=== PATIENT | male | born 1960 | race Caucasian/White ===

== ENCOUNTER 2017-05-10 12:25 | Emergency (ER) | payer OTHER ==
[~2017-05-10] VITALS: Ht 177.8 cm; Wt 87.5 kg
== END 2017-05-10 15:04 | disposition home or self-care (01) ==
LOC: ER 12:25
DX: R68.84 Jaw pain (principal)

== ENCOUNTER 2024-09-18 00:20 | Emergency (ER) | payer OTHER ==
[~2024-09-18] VITALS: Ht 177.8 cm; Wt 86.2 kg
[2024-09-18] MEDS ORDERED: 0.9 % SODIUM CHLORIDE 1,000 ML IV SCH (01:00)
[2024-09-18 01:50] LABS: BASO % 0.5 % (0.1-1.2); EOS # 0.09 (0.04-0.54); EOS % 1.4 % (0.7-7.0); HEMATOCRIT 41.9 % (40.1-51.0); HEMOGLOBIN 14.4 g/dL (13.7-17.5); LYMPH # 2.46 (1.18-3.74); LYMPH % 38.7 % (19.3-53.1); MONO # 0.47 (0.24-0.82); MONO % 7.4 % (4.7-12.5); NEUT # 3.28 (1.56-6.13); NEUT % 51.7 % (34.0-71.1); PLATELET COUNT 286 K/uL (163-369); RED CELL DISTRIBUTION WIDTH 11.9 % (11.6-14.4)
[2024-09-18 03:08] LABS: BILIRUBIN TOTAL 0.57 mg/dL (0.3-1.2); CALCIUM 8.7 mg/dL (8.5-10.1); GFR 74.99; GLOBULINA 3.5 G/DL (2.4-3.5); POTASSIUM 4.35 mEq/L (3.5-5.1); TOTAL PROTEIN 7.5 gm/dL (6.4-8.2)
[2024-09-18 03:48] LABS: PH,URINE 5.5 (5.0-8.0); URINE APPEARANCE Clear; URINE BILIRRUBIN Negative (NEGATIVE); URINE BLOOD Negative; URINE COLOR Yellow; URINE GLUCOSE Negative (NEGATIVE); URINE KETONE Trace (NEGATIVE); URINE LEUKOCYTE Trace; URINE NITRATE Negative; URINE PROTEIN Trace (NEGATIVE); URINE UROBILINOGEN 0.2 E.U./dl
[2024-09-18 03:50] LABS: ALT/SGPT 47 U/L (12-78); AST/SGOT 22 U/L (15-37); LDH 201 U/L (87-241); PHOSPHOKINASE CREATININE 119 U/L (39-308)
[2024-09-18 03:52] LABS: URINE BACTERIA 29.3 uL (0.0-1933); URINE EPITHELIAL CELLS 8.6 uL (0.0-38.8); URINE RBC 10.3 uL (0.0-20.8); URINE WBC 24.5 uL (0.0-23.2)
[2024-09-18 03:54] LABS: URINE CAST 1.17 uL (0.0-1.40)
== END 2024-09-18 04:12 | disposition home or self-care (01) ==
LOC: ER 00:26
PROVIDERS: General Practice
DX: E86.0 Dehydration (principal)